=== PATIENT | male | born 2000 | race Caucasian/White ===

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

== ENCOUNTER 2021-08-04 11:41 | Emergency (ER) | payer BC ==
[2021-08-04] MEDS ORDERED: predniSONE 20 MG TAB ONE (12:18)
== END 2021-08-04 12:22 | disposition home or self-care (01) ==
LOC: NAV ERS 11:41
DX: R21 Rash and other nonspecific skin eruption (principal); T50.995A Adverse effect of other drugs, medicaments and biological substances, initial encounter; F17.210 Nicotine dependence, cigarettes, uncomplicated
CPT/HCPCS: 99282; J7512

== ENCOUNTER 2022-10-04 21:40 | Emergency (ER) | payer OTHER, SELFPAY ==
[2022-10-04] MEDS ORDERED: Lidocaine 1% (PF) 30 ML VIAL ONE (22:04)
[2022-10-04] MEDS ORDERED: Bacitracin 1 PK ONE (23:26)
[2022-10-04] MEDS ORDERED: Amoxicillin/Potassium Clav 875 MG TAB ONE (23:26)
[2022-10-04] MEDS ORDERED: Ibuprofen 200 MG TAB ONE (23:31)
== END 2022-10-05 00:40 | disposition home or self-care (01) ==
LOC: NAV ERS 21:40
DX: S61.255A Open bite of left ring finger without damage to nail, initial encounter (principal); F17.210 Nicotine dependence, cigarettes, uncomplicated; W54.0XXA Bitten by dog, initial encounter; Z23 Encounter for immunization
CPT/HCPCS: 12001; 90471; J2001

== ENCOUNTER 2023-06-05 11:15 | Emergency (ER) | payer BC | END 2023-06-05 12:57 | disposition home or self-care (01) | LOC: NAV ERS 11:15 | DX: J93.83 Other pneumothorax (principal) | CPT/HCPCS: 71046; 99284 ==

== ENCOUNTER 2023-06-06 15:06 | Emergency (ER) | payer BC | END 2023-06-06 16:01 | disposition home or self-care (01) | LOC: NAV ERS 15:06 | DX: Z48.813 Encounter for surgical aftercare following surgery on the respiratory system (principal); F17.290 Nicotine dependence, other tobacco product, uncomplicated | CPT/HCPCS: 71046; 99284 ==

== ENCOUNTER 2023-07-11 21:15 | Emergency (ER) | payer BC ==
[2023-07-11] MEDS ORDERED: Ketorolac Tromethamine 30 MG/ML VIAL ONE (21:48)
== END 2023-07-11 22:31 | disposition home or self-care (01) ==
LOC: NAV ERS 21:15
DX: R07.81 Pleurodynia (principal); F17.290 Nicotine dependence, other tobacco product, uncomplicated
CPT/HCPCS: 71046; 96372; J1885

== ENCOUNTER 2023-11-01 09:45 | Emergency (ER) | payer BC | END 2023-11-01 10:48 | disposition home or self-care (01) | LOC: NAV ERS 09:45 | DX: S90.31XA Contusion of right foot, initial encounter (principal); F17.290 Nicotine dependence, other tobacco product, uncomplicated; W50.0XXA Accidental hit or strike by another person, initial encounter ==